=== PATIENT | male | born 1990 | race Caucasian/White ===

== ENCOUNTER 2019-05-27 20:07 | Emergency (ER) | payer SELFPAY ==
[~2019-05-27] VITALS: Ht 177.8 cm; Wt 81.6 kg
[~2019-05-27 20:07] MED LIST: PREDNICOT20 MG PO; PREVACID SOLUTA30 MG PO; ZITHROMAX250 MG PO
[2019-05-27] MEDS ORDERED: CLINDAMYCIN HC300 MG PO (21:02)
== END 2019-05-27 21:04 | disposition home or self-care (01) ==
LOC: ED 20:07
DX: K04.7 Periapical abscess without sinus (principal); Z91.040 Latex allergy status

== ENCOUNTER 2025-04-15 13:33 | Emergency (ER) | payer OTHER ==
[~2025-04-15] VITALS: Ht 175.2 cm; Wt 90.7 kg
[~2025-04-15 13:33] MED LIST changes: +CLINDAMYCIN HC300 MG PO
[2025-04-15] MEDS ORDERED: Cyclobenzaprine Hydrochlorid 10 MG TAB PO ONE (14:30)
[2025-04-15] MEDS ORDERED: PREDNISONE20 M1 PO (14:31)
[2025-04-15] MEDS ORDERED: CYCLOBENZAPRINE10 MG PO (14:31)
[2025-04-15] MEDS ORDERED: HYDROCODONE-AC1 EAC1 PO (14:31)
[2025-04-15] MEDS ORDERED: Water, Sterile 10 ML VIAL ONE (14:53)
[2025-04-15] MEDS ORDERED: Acetaminophen/Hydrocodone 5 MG/325 MG TABLET PO ONE (15:25)
== END 2025-04-15 15:38 | disposition home or self-care (01) ==
LOC: ED 13:33
DX: M54.41 Lumbago with sciatica, right side (principal); Z79.899 Other long term (current) drug therapy